=== PATIENT | male | born 1945 | race Two or more races ===

== ENCOUNTER 2024-10-05 11:02 | Emergency (ER) | payer MEDICARE, SELFPAY ==
[2024-10-05] VITALS (14 sets, daily range): BP systolic 108–203; BP diastolic 54–100; PULSE 68–96; RESP 12–26; TEMP 36.6–36.9; O2SAT 95–100; BMI 22.0
--- NOTE | 2024-10-05 12:37 | XR_ITS ---
Examination: CT soft tissue neck, with intravenous contrast. 2-D coronal reconstructions. 2-D sagittal reconstructions. Date and time of exam :October 05, 2024 7051 hours INDICATIONS: Patient states something stuck in the throat today. CTDI: vol (mGy):9.53 DLP: (mGycm):274 Technique: 1.25 mm axial sections of the neck of the obtained. Coronal and sagittal reconstructions have been obtained. Intravenous contrast administered 50 cc Isovue-370. Low dose protocols were performed. One or more of the following dose reduction techniques were used; automated exposure control, adjustment of the mA and/or KV according to patient size, use of iterative reconstruction technique. 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
--- NOTE | 2024-10-05 12:37 | XR_ITS ---
Examination: AP lateral chest 2 views TECHNIQUE: Upright AP lateral chest 2 views Exam date and time: October 05, 2024 1315 hours INDICATIONS: Patient says somethings duct in the throat one month FINDINGS: Normal heart size No aspiration pneumonia Minimal blunting of the left lateral costophrenic angle Density over the left apex which may be artifactual The osseous structures are intact IMPRESSION: Recommend AP lordotic chest follow-up to exclude parenchymal disease left apex Given the patient's presentation, consider standard fluoroscopically guided esophagram follow-up
--- NOTE | 2024-10-05 12:39 | EDNOTE_ITS ---
ED Dental RME/HPI General Chief complaint: Dental/Oral/Throat Stated complaint: Floss for his teeth is stuck in his throat Time Seen by Provider: 10/05/24 11:36 Source: patient Arrival date/time: 10/05/24 11:02 This is a 78-year-old male presents to the emergency department with complaints of dysphagia worsening over this week. He does report he possibly has something stuck in his throat for approximately 1 month has been attempting to manage his pain and dysphagia at home however states he is unable to eat and keep fluids down. He was seen by his PCP today and when sent over to the emergency department for evaluation. He reports he possibly has a flossing stick or toothpick stuck. Denies shortness of breath, chest pain. Mode of arrival: ambulatory Limitations: no limitations Related Data Home Medications ?Medication ?Instructions ?Recorded ?Confirmed benzonatate 100 mg capsule 100 mg PO TID PRN 05/25/18 05/11/22 carvedilol 3.125 mg tablet 3.125 mg PO BID 05/25/18 05/11/22 cefixime 400 mg capsule (Suprax) 400 mg PO QDAY 05/25/18 05/11/22 guaifenesin 600 mg tablet, 600 mg PO Q12H 05/25/18 05/11/22 extended release 12 hr (Mucus Relief ER) lisinopril 40 mg tablet 40 mg PO QDAY 05/25/18 05/11/22 metformin 500 mg tablet 500 mg PO QDAY 05/25/18 05/11/22 tamsulosin 0.4 mg capsule 0.4 mg PO BID 05/25/18 05/11/22 finasteride 5 mg tablet 5 mg PO QDAY 08/24/18 05/11/22 mirabegron 50 mg tablet,extended 50 mg PO QDAY 10/04/19 05/11/22 release 24 hr (Myrbetriq) furosemide 20 mg tablet 20 mg PO QDAY 10/19/21 05/11/22 losartan 50 mg tablet 50 mg PO QDAY 10/19/21 05/11/22 metformin 500 mg tablet 500 mg PO BIDWMEAL 10/19/21 05/11/22 Allergies Allergy/AdvReac Type Severity Reaction Status Date / Time No Known Allergies Allergy Verified 05/11/22 11:29 Review of Systems Review of Systems Systems Reviewed: All systems reviewed, normal except as documented Narrative Review of Systems: Gen: No fever, no chills, no weight loss EYES: No discharge, no visual changes, no pain HEENT: No ear pain, no congestion, +sore throat, +dyshphagia PULM: No shortness of breath, no cough, no congestion CV: No chest pain, no dyspnea on exertion, no palpitations GI: No nausea, no vomiting, no diarrhea, no pain, no constipation : No frequency, no urgency,? no dysuria Musc/skel: No joint pain, no back pain Skin: No rash? ED Exam General Limitations: Present no limitations General appearance: Present alert and in no apparent distress Head Head exam: Present atraumatic Eye Eye exam: Present normal appearance, PERRL and EOMI ENT ENT exam: Present normal exam, normal oropharynx and mucous membranes moist Neck Neck exam: Present normal inspection, full ROM and trachea midline Chest Chest inspection: Present normal inspection and symmetric chest wall rise Respiratory Respiratory exam: Present normal lung sounds bilaterally Cardiovascular Cardiovascular exam: Present regular rate, normal rhythm and normal heart sounds Abdominal Exam Abdominal exam: Present soft and normal bowel sounds Extremities Exam Extremities exam: Present normal inspection and full ROM Back Exam Back exam: Present normal inspection and full ROM Neurological Exam Neurological exam: Present alert, oriented X3 and CN II-XII intact Psychiatric Psychiatric exam: Present normal affect and normal mood Skin Skin exam: Present warm, dry, intact and normal color Course Quality Measures none Orders Category Date Time Status Assess for bleeding NEEDED Care 10/05/24 17:[address] Screening NOW Care 10/05/24 12:38 Active Clear Liquid Diet - Advance as Tolerated Routine Care 10/05/24 19:56 Ordered Insert [Insert IV] NOW Care 10/05/24 12:39 Active Vital Signs, Non-Routine Q10MX3 Care 10/05/24 17:45 Ordered Consult to Gastroenterology Stat Cons 10/05/24 12:38 Ordered Diet Clear Liquid Diet 10/05/[address] soft tissue neck w con Stat Exams 10/05/24 12:37 Completed XR chest 2V Stat Exams 10/05/24 12:37 Completed CBC Stat Lab 10/05/24 13:13 Completed CMP [Comprehensive Metabolic Panel] Stat Lab 10/05/24 13:13 Completed DiphenhydrAMINE INJ [Benadryl Inj] Med 10/05/24 17:42 Discontinued 25 mg IV PRNMRX1 PRN DiphenhydrAMINE INJ [Benadryl Inj] Med 10/05/24 18:58 Discontinued 50 mg .ROUTE .STK-MED ONE Midazolam Inj [Versed Inj] Med 10/05/24 17:42 Discontinued 2 mg IV Q2M PRN Midazolam Inj [Versed Inj] Med 10/05/24 18:58 Discontinued 6 mg .ROUTE .STK-MED ONE Sodium Chloride 0.9% 1000 ml [Ns] 1,000 ml Med 10/05/24 17:30 Active IV 100 mls/hr fentaNYL INJ [Sublimaze Inj] Med 10/05/24 18:58 Discontinued 100 mcg .ROUTE .STK-MED ONE fentaNYL INJ [Sublimaze Inj] Med 10/05/24 17:42 Discontinued 50 mcg IV Q2M PRN Transfer Order Routine Transfer 10/05/24 19:57 Active Vital Signs Vital signs: Vital Signs Temperature 98.0 F 10/05/24 11:46 Pulse Rate 68 10/05/24 11:46 Respiratory Rate 17 10/05/24 11:46 Blood Pressure 161/67 H 10/05/24 11:46 Pulse Oximetry (%) 98 10/05/24 11:46 Oxygen Delivery Method Room Air 10/05/24 11:46 Dental / Oral MDM Narrative MDM Narrative:: I did consult with Dr. Brown on-call plumbing assembler installer Case discussed. Advises patient is unable to swallow severe dysphagia can admit for dysphagia and will attempt to scope him this afternoon or tomorrow morning. Will call the admitting team for consultation and admission after patient's labs are back. Case was signed out to my collegue Tk who will wait for CT imaging before admission or procedure. Patient data External records reviewed:: [facility] previous records Clinical information provided by:: patient Social determinants that could affect healthcare access:: none Patient has the following chronic illnesses:: Hypertension, DMC How is presenting disease/condition affected by chronic disease/condition?: uneffected by Evaluation data The following diagnostics were reviewed and interpreted by me:: lab results and radiology exam(s) Lab and/or radiology exams considered but not ordered:: yes Interpretation Summary: see above Medications / Prescriptions Medications or Prescriptions considered but not ordered:: no Medication administrations:: Medication Administration History Sodium Chloride (Ns) 1,000 mls @ 100 mls/hr IV .Q10H DAVID Stop: 11/04/24 17:29 Last Admin: 10/05/24 18:07 Dose: 100 mls/hr Documented By: NIA Discontinued Medications Diphenhydramine HCl (Diphenhydramine Inj 50 Mg/Ml Vial) 25 mg IV PRNMRX1 PRN PRN Reason: MODERATE SEDATION Stop: 10/05/24 19:42 Diphenhydramine HCl (Diphenhydramine Inj 50 Mg/Ml Vial) Confirm Administered Dose 50 mg .ROUTE .STK-MED ONE Stop: 10/05/24 18:59 Fentanyl Citrate (Fentanyl Cit Inj 50 Mcg/Ml Amp 2ml) 50 mcg IV Q2M PRN PRN Reason: MODERATE SEDATION Stop: 10/05/24 19:42 Fentanyl Citrate (Fentanyl Cit Inj 50 Mcg/Ml Amp 2ml) Confirm Administered Dose 100 mcg .ROUTE .STK-MED ONE Stop: 10/05/24 18:59 Midazolam HCl (Midazolam Inj 1 Mg/Ml Vial 2 Ml) 2 mg IV Q2M PRN PRN Reason: Moderate Sedation Stop: 10/05/24 19:42 Midazolam HCl (Midazolam Inj 1 Mg/Ml Vial 2 Ml) Confirm Administered Dose 6 mg .ROUTE .STK-MED ONE Stop: 10/05/24 18:59 All medications administered and effective Consultations Consultation(s) initiated? (list below): Yes Consultation #1 (Physician, Specialty, Details): I did consult with Dr. Brown on-call plumbing assembler installer Case discussed. Advises patient is unable to swallow severe dysphagia can admit for dysphagia and will attempt to scope him this afternoon or tomorrow morning. Will call the admitting team for consultation and admission after patient's labs are back. Case was signed out to my collegue [facility] who will wait for CT imaging before admission or procedure. Diagnosis Dental Differential Diagnosis: dental caries, dental abscess and other (No abscess, dysphagia, foreign body in esophagus) Most likely diagnosis given after review of the tests above:: Dysphagia Admission Indicated Admission indicated?: indicated Admission Request Was there a request for admission?: Yes Admission Attestation Admission request attestation: Discussed case with [] from Hospitalist service regarding admission. Discussed patients ED course, exam findings, labs, and radiology results. The Hospitalist [agrees,declines] to accept the patient for admission. Disposition Plan Disposition Plan: Discharge Discharge Attestation Discharge Attestation: The patient and all family members were given an opportunity to ask questions and understood the discharge instructions. Discharge instructions specifically effects, indications for sooner follow up or return to the emergency department, and the expected course of current diagnosis. Patient condition: Stable Discharge Plan Plan Patient Disposition: HOME (Self Care) Disposition Comment: stable Prescriptions/Referrals Prescriptions/Med Rec: No Action Myrbetriq 50 mg tablet extended release 24 hr 50 mg PO QDAY losartan 50 mg tablet 50 mg PO QDAY metformin 500 mg tablet 500 mg PO BIDWMEAL furosemide 20 mg tablet 20 mg PO QDAY lisinopril 40 mg tablet 40 mg PO QDAY benzonatate 100 mg capsule 100 mg PO TID PRN tamsulosin 0.4 mg capsule 0.4 mg PO BID carvedilol 3.125 mg tablet 3.125 mg PO BID metformin 500 mg tablet 500 mg PO QDAY guaifenesin [Mucus Relief ER] 600 mg tablet extended release 12hr 600 mg PO Q12H cefixime [Suprax] 400 mg capsule 400 mg PO QDAY finasteride 5 mg tablet 5 mg PO QDAY Referrals: Eh Velarde MD [Primary Care Provider] - In 1 week Problem List Clinical Impression: Dysphagia Patient/Caregiver Discharge Instructions Discharge Activity: activity as tolerated Education Materials: Dysphagia: Exercises, ED Dysphagia (Adult) Additional Instructions: Thank you for the opportunity for serving you today. You are stable for discharged . You are advised to: Follow-up with your PCP in 1 to 2 days Return to ED for worsening of symptoms Print Language: Other Stand Alone Forms: Gerri Award Info., Patient Portal Info Letter
[2024-10-05 13:40] LABS: Basophils % (Auto) 0 % (0-2.5); Eosinophils # (Auto) 0.1 Thou/mm3 (0.0-0.5); Eosinophils % (Auto) 1 % (0-10); Hematocrit 37.2 % (41.0-53.0); Hemoglobin 12.7 g/dL (13.5-16.0); Immature Granulocytes % (Auto) 0 % (0-0); Immature Granulocytes Auto 0.01 Thou/mm3 (0.00-0.00); Lymphocytes # (Auto) 1.3 Thou/mm3 (1.0-4.8); Lymphocytes % (Auto) 13 % (10-50); Mean Corpuscular HGB Conc 34.1 g/dl (31.0-37.0); Mean Corpuscular Hemoglobin 30.4 pg (25.0-35.0); Mean Corpuscular Volume 89 fL (80-100); Monocytes # (Auto) 0.7 Thou/mm3 (0.0-0.8); Monocytes % (Auto) 7 % (0-12); Neutrophils # (Auto) 7.8 Thou/mm3 (1.8-7.7); Neutrophils % (Auto) 78 % (37-80); Nucleated Red Blood Cell % 0 /100 WBC (0); Platelet Count 284 Thou/mm3 (140-440); RDW Standard Deviation 40.9 fL (35.1-43.9); Red Blood Count 4.18 Miln/mm3 (4.50-5.90); White Blood Count 9.9 Thou/mm3 (3.8-10.6)
[2024-10-05 14:01] LABS: Anion Gap 5 (7-16); BUN/Creatinine Ratio 19 Ratio (12-20); Blood Urea Nitrogen 21 mg/dL (9-23); Calcium 9.6 mg/dL (8.3-10.6); Carbon Dioxide 31.8 mMol/L (20.0-31.0); Chloride 99 mMol/L (98-107); Creatinine (Component) 1.1 mg/dL (0.6-1.3); Estimated Creatinine Clearance 45.4 mL/min (>60); Glucose 104 mg/dL (74-106); Osmolality,Calculated 274 (275-295); Potassium 4.5 mMol/L (3.4-5.1); Sodium 136 mMol/L (136-145); eGFR > 60 See Note
[2024-10-05 14:02] LABS: Alanine Aminotransferase 11 U/L (10-49); Albumin, Serum 4.5 gm/dL (3.4-4.8); Albumin/Globulin Ratio 1.5 (1.2-2.2); Alkaline Phosphatase 92 U/L (46-116); Aspartate Amino Transferase 21 U/L (0-34); Bilirubin,Total 0.5 mg/dL (0.3-1.2); Calcium (Corrected) 9.6 mg/dL (8.5-10.1); Globulin 3.1 gm/dL (2.3-3.5); Total Protein 7.6 gm/dL (5.7-8.2)
[2024-10-05] MEDS: SODIUM CHLORIDE 0.9% 1000 ML 1,000 ML 100 ML IV (18:07)
--- NOTE | 2024-10-05 18:46 | EDNOTE_ITS ---
ED Dental RME/HPI General Chief complaint: Dental/Oral/Throat Stated complaint: Floss for his teeth is stuck in his throat Time Seen by Provider: 10/05/24 11:36 Source: patient Arrival date/time: 10/05/24 11:02 Mode of arrival: ambulatory Limitations: no limitations RME / HPI RME / HPI Narrative: 78-year-old male patient with significant history of hypertension prostate cancer came in for evaluation regarding throat discomfort. Apparently patient is complaining of pain to the throat, told me that a floss got stuck in his throat. For the last 3 weeks. Patient is able to talk and ate but with some discomfort. Denies any fever denies any other complaints. Related Data Home Medications ?Medication ?Instructions ?Recorded ?Confirmed benzonatate 100 mg capsule 100 mg PO TID PRN 05/25/18 05/11/22 carvedilol 3.125 mg tablet 3.125 mg PO BID 05/25/18 05/11/22 cefixime 400 mg capsule (Suprax) 400 mg PO QDAY 05/25/18 05/11/22 guaifenesin 600 mg tablet, 600 mg PO Q12H 05/25/18 05/11/22 extended release 12 hr (Mucus Relief ER) lisinopril 40 mg tablet 40 mg PO QDAY 05/25/18 05/11/22 metformin 500 mg tablet 500 mg PO QDAY 05/25/18 05/11/22 tamsulosin 0.4 mg capsule 0.4 mg PO BID 05/25/18 05/11/22 finasteride 5 mg tablet 5 mg PO QDAY 08/24/18 05/11/22 mirabegron 50 mg tablet,extended 50 mg PO QDAY 10/04/19 05/11/22 release 24 hr (Myrbetriq) furosemide 20 mg tablet 20 mg PO QDAY 10/19/21 05/11/22 losartan 50 mg tablet 50 mg PO QDAY 10/19/21 05/11/22 metformin 500 mg tablet 500 mg PO BIDWMEAL 10/19/21 05/11/22 Allergies Allergy/AdvReac Type Severity Reaction Status Date / Time No Known Allergies Allergy Verified 05/11/22 11:29 Review of Systems Review of Systems Narrative Review of Systems: Review of system reviewed and within normal limits except mentioned in HPI ED Exam Narrative Physical exam: VITAL SIGNS: Reviewed. GENERAL APPEARANCE: Alert and interactive, follows commands, no acute distress, HEAD AND FACE: Non-traumatic. ENT: PERRL, pink conjunctivitis, eyelid no trauma, Mucous membrane moist. NECK: Supple, nontender, no nuchal rigidity. CHEST: No tenderness, no crepitus, no paradoxical movement, no retractions. LUNGS: Clear, well ventilated, symmetric, no rales, no wheezing, no ronchi, no stridor, good breath sounds bilaterally. HEART: Regular rate, regular rhythm, no murmur, no gallops. ABDOMEN: Soft, positive bowel sounds, nondistended, no guarding, nontender, no rebound, no masses, RECTAL: Deferred. GENITAL: Deferred. NEUROLOGICAL: Gross motor function intact sensory function intact, Appropriate for age. MUSCULOSKELETAL: low back nontender, full range of motion. EXTREMITIES: Nontender, full range of motion. SKIN: Color pink, dry, no rash, no lacerations, no abrasions, no contusions. LYMPHATICS: Deferred. General Limitations: Present no limitations General appearance: Present alert and in no apparent distress Course Quality Measures none Orders Category Date Time Status Assess for bleeding NEEDED Care 10/05/24 17:[address] Screening NOW Care 10/05/24 12:38 Completed Clear Liquid Diet - Advance as Tolerated Routine Care 10/05/24 19:56 Ordered Insert [Insert IV] NOW Care 10/05/24 12:39 Completed Vital Signs, Non-Routine Q10MX3 Care 10/05/24 17:45 Ordered Consult to Gastroenterology Stat Cons 10/05/24 12:38 Ordered Diet Clear Liquid Diet 10/05/[address] soft tissue neck w con Stat Exams 10/05/24 12:37 Completed XR chest 2V Stat Exams 10/05/24 12:37 Completed CBC Stat Lab 10/05/24 13:13 Completed CMP [Comprehensive Metabolic Panel] Stat Lab 10/05/24 13:13 Completed DiphenhydrAMINE INJ [Benadryl Inj] Med 10/05/24 17:42 Discontinued 25 mg IV PRNMRX1 PRN DiphenhydrAMINE INJ [Benadryl Inj] Med 10/05/24 18:58 Discontinued 50 mg .ROUTE .STK-MED ONE Midazolam Inj [Versed Inj] Med 10/05/24 17:42 Discontinued 2 mg IV Q2M PRN Midazolam Inj [Versed Inj] Med 10/05/24 18:58 Discontinued 6 mg .ROUTE .STK-MED ONE Sodium Chloride 0.9% 1000 ml [Ns] 1,000 ml Med 10/05/24 17:30 Discontinued IV 100 mls/hr fentaNYL INJ [Sublimaze Inj] Med 10/05/24 18:58 Discontinued 100 mcg .ROUTE .STK-MED ONE fentaNYL INJ [Sublimaze Inj] Med 10/05/24 17:42 Discontinued 50 mcg IV Q2M PRN Transfer Order Routine Transfer 10/05/24 19:57 Active Vital Signs Vital signs: Vital Signs Temperature 98.0 F 10/05/24 11:46 Pulse Rate 68 10/05/24 11:46 Respiratory Rate 17 10/05/24 11:46 Blood Pressure 161/67 H 10/05/24 11:46 Pulse Oximetry (%) 98 10/05/24 11:46 Oxygen Delivery Method Room Air 10/05/24 11:46 Dental / Oral MDM Narrative MDM Narrative:: 78-year-old male patient with significant history of hypertension prostate cancer came in for evaluation regarding throat discomfort. Apparently patient is complaining of pain to the throat, told me that a floss got stuck in his throat. For the last 3 weeks. Patient is able to talk and ate but with some discomfort. Denies any fever denies any other complaints. Patient CT scan of the neck soft tissue, came back unremarkable. Results discussed with the patient. Patient was seen by Dr. Brown in the emergency room, and endoscopy was done with dilatation, no foreign body noted. Patient verbalized significant improvement of symptoms Patient appears nontoxic and hemodynamically stable. Patient discharged home and instructed to follow-up with primary care provider in 24 to 48 hours. Instructed to return to the emergency department immediately if worsening of symptoms Patient data External records reviewed:: None Clinical information provided by:: patient Social determinants that could affect healthcare access:: none Patient has the following chronic illnesses:: Hypertension, history of prostate problem How is presenting disease/condition affected by chronic disease/condition?: exacerbated by Evaluation data The following diagnostics were reviewed and interpreted by me:: lab results and radiology exam(s) Lab and/or radiology exams considered but not ordered:: Plan Interpretation Summary: CBC no leukocytosis noted CMP also came back unremarkable. 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 including 17 mm nodule and a bleb in the right upper lobe, follow-up recommended Medications / Prescriptions Medications or Prescriptions considered but not ordered:: None Medication administrations:: Medication Administration History Discontinued Medications Diphenhydramine HCl (Diphenhydramine Inj 50 Mg/Ml Vial) 25 mg IV PRNMRX1 PRN PRN Reason: MODERATE SEDATION Stop: 10/05/24 19:42 Diphenhydramine HCl (Diphenhydramine Inj 50 Mg/Ml Vial) Confirm Administered Dose 50 mg .ROUTE .STK-MED ONE Stop: 10/05/24 18:59 Fentanyl Citrate (Fentanyl Cit Inj 50 Mcg/Ml Amp 2ml) 50 mcg IV Q2M PRN PRN Reason: MODERATE SEDATION Stop: 10/05/24 19:42 Fentanyl Citrate (Fentanyl Cit Inj 50 Mcg/Ml Amp 2ml) Confirm Administered Dose 100 mcg .ROUTE .STK-MED ONE Stop: 10/05/24 18:59 Sodium Chloride (Ns) 1,000 mls @ 100 mls/hr IV .Q10H DAVID Stop: 11/04/24 17:29 Last Admin: 10/05/24 18:07 Dose: 100 mls/hr Documented By: NIA Midazolam HCl (Midazolam Inj 1 Mg/Ml Vial 2 Ml) 2 mg IV Q2M PRN PRN Reason: Moderate Sedation Stop: 10/05/24 19:42 Midazolam HCl (Midazolam Inj 1 Mg/Ml Vial 2 Ml) Confirm Administered Dose 6 mg .ROUTE .STK-MED ONE Stop: 10/05/24 18:59 Benadryl IV fentanyl Consultations Consultation(s) initiated? (list below): Yes Consultation #1 (Physician, Specialty, Details): Dr. Brown, GI specialist on-call thank you Dr. Brown Diagnosis Dental Differential Diagnosis: other (Dysphagia, foreign body throat) Most likely diagnosis given after review of the tests above:: Dysphagia Admission Indicated Admission indicated?: not indicated Explain why admission is indicated or not indicated:: Stable for discharge Admission Request Was there a request for admission?: No Disposition Plan Disposition Plan: Discharge Discharge Attestation Discharge Attestation: The patient and all family members were given an opportunity to ask questions and understood the discharge instructions. Discharge instructions specifically effects, indications for sooner follow up or return to the emergency department, and the expected course of current diagnosis. Patient condition: Stable Discharge Plan Plan Patient Disposition: HOME (Self Care) Disposition Comment: stable Prescriptions/Referrals Prescriptions/Med Rec: No Action Myrbetriq 50 mg tablet extended release 24 hr 50 mg PO QDAY losartan 50 mg tablet 50 mg PO QDAY metformin 500 mg tablet 500 mg PO BIDWMEAL furosemide 20 mg tablet 20 mg PO QDAY lisinopril 40 mg tablet 40 mg PO QDAY benzonatate 100 mg capsule 100 mg PO TID PRN tamsulosin 0.4 mg capsule 0.4 mg PO BID carvedilol 3.125 mg tablet 3.125 mg PO BID metformin 500 mg tablet 500 mg PO QDAY guaifenesin [Mucus Relief ER] 600 mg tablet extended release 12hr 600 mg PO Q12H cefixime [Suprax] 400 mg capsule 400 mg PO QDAY finasteride 5 mg tablet 5 mg PO QDAY Referrals: Eh Velarde MD [Primary Care Provider] - In 1 week Problem List Clinical Impression: Dysphagia Patient/Caregiver Discharge Instructions Discharge Activity: activity as tolerated Education Materials: Dysphagia: Exercises, ED Dysphagia (Adult) Additional Instructions: Thank you for the opportunity for serving you today. You are stable for dis charged . You are advised to: Follow-up with your PCP in 1 to 2 days Return to ED for worsening of symptoms Print Language: Other Stand Alone Forms: Gerri Award Info., Patient Portal Info Letter
--- NOTE | 2024-10-05 18:54 | PC.NURSE ---
Report given to nurs form endo she states she will case picker pt shortly for EGD pt made aware
--- NOTE | 2024-10-05 19:29 | ESCONSULT_ITS ---
HPI Data of Consult Primary Care Provider: Eh Velarde MD Consult Narrative Reason for consult: Dysphagia History of present illness: 78 years old male evaluated at the request of the SECRETARIAL STENOGRAPHER from the emergency room Ms. Valle Patient presented at the request of his primary care physician for dysphagia and a foreign body stuck on a foreign body sensation in the oropharyngeal area Is a very difficult patient and very poor historian He does have a history of essential hypertension diabetes mellitus type 2 and prostate carcinoma requiring some kind of a procedure and wear diapers because of the urinary leakage postsurgery cc:: cc: Past Medical History Surgical History OTHER SURGICAL HX: As in the history of present illness Meds Home Medications and Allergies Home Medications ?Medication ?Instructions ?Recorded ?Confirmed ?Type benzonatate 100 mg capsule 100 mg PO TID PRN 05/25/18 05/11/22 History carvedilol 3.125 mg tablet 3.125 mg PO BID 05/25/18 05/11/22 History cefixime 400 mg capsule (Suprax) 400 mg PO QDAY 05/25/18 05/11/22 History guaifenesin 600 mg tablet, 600 mg PO Q12H 05/25/18 05/11/22 History extended release 12 hr (Mucus Relief ER) lisinopril 40 mg tablet 40 mg PO QDAY 05/25/18 05/11/22 History metformin 500 mg tablet 500 mg PO QDAY 05/25/18 05/11/22 History tamsulosin 0.4 mg capsule 0.4 mg PO BID 05/25/18 05/11/22 History finasteride 5 mg tablet 5 mg PO QDAY 08/24/18 05/11/22 History mirabegron 50 mg tablet,extended 50 mg PO QDAY 10/04/19 05/11/22 History release 24 hr (Myrbetriq) furosemide 20 mg tablet 20 mg PO QDAY 10/19/21 05/11/22 History losartan 50 mg tablet 50 mg PO QDAY 10/19/21 05/11/22 History metformin 500 mg tablet 500 mg PO BIDWMEAL 10/19/21 05/11/22 History Allergies Allergy/AdvReac Type Severity Reaction Status Date / Time No Known Allergies Allergy Verified 05/11/22 11:29 Exam Vital Signs Temp Pulse Resp BP Pulse Ox O2 Del Method 98.1 F 77 18 158/71 H 98 Room Air 10/05/24 17:41 10/05/24 17:41 10/05/24 17:41 10/05/24 17:41 10/05/24 17:41 10/05/24 17:41 Constitutional Comments: Alert oriented Routine Respiratory Exam Comments: Normal to auscultation Routine Abdominal Exam Comments: Soft nontender Results Labs 10/05/24 13:13 10/05/24 13:13 Labs: Short CBC 10/05/24 Range/Units 13:13 WBC 9.9 (3.8-10.6) Thou/mm3 Hgb 12.7 L (13.5-16.0) g/dL Hct 37.2 L (41.0-53.0) % Plt Count 284 (140-440) Thou/mm3 BMP 10/05/24 13:13 Sodium 136 Potassium 4.5 Chloride 99 Carbon Dioxide 31.8 H BUN 21 Creatinine 1.1 Glucose 104 Calcium 9.6 Liver Function 10/05/24 Range/Units 13:13 Total Bilirubin 0.5 (0.3-1.2) mg/dL AST 21 (0-34) U/L ALT 11 (10-49) U/L Alkaline Phosphatase 92 (46-116) U/L Albumin 4.5 (3.4-4.8) gm/dL Assessment and Plan Additional Assessment & Plan Additional Plan: # Dysphagia etiology uncertain worsening possibly foreign body obstruction or stricture Plan Fiberoptic esophagogastroduodenoscopy with possible biopsy possible therapeutic intervention under intravenous moderate sedation Informed consent obtained we will proceed with the procedure
--- NOTE | 2024-10-05 20:00 | SUR.PHASEI ---
RECEIVED PT AND REPORT FROM ANDREI SEAMAN. PT RESTING WITH EYES CLOSED, EASILY AROUSASBLE, VSS. IV x1 INTACT, NO S/S OF INFILTRATION OR REDNESS TO SIGHT, PT PASSING FLATUS. WILL CONTINUE TO MONITOR
--- NOTE | 2024-10-05 20:28 | SUR.PHASEI ---
PT RECOVERING WELL, VSS, NO DISTRESS NOTED. IV STILL INTACT, NO SS OF REDNESS OR INFILTRATION NOTED. REPORT GIVEN TO ANDREI HILL.
== END 2024-10-05 22:20 | disposition home or self-care (01) ==
PROVIDERS: Nurse Practitioner Primary Care; Specialist; Emergency Provider Emergency Medicine; PCP Internal Medicine Pulmonary Disease
PROC: (CPT 43239; principal; 2024-10-05 22:00)
DX: K22.2 Esophageal obstruction (principal); K20.90 Esophagitis, unspecified without bleeding; K29.50 Unspecified chronic gastritis without bleeding; E04.1 Nontoxic single thyroid nodule
CPT/HCPCS: 43239; 43248; 36415; 70491; 71046; 80053; 85025; 99285; A4217; A4649; C1769; J1200; J2250; J3010; J7030; Q9967